=== PATIENT | female | born 1990 | race Caucasian/White ===

== ENCOUNTER 2019-04-06 18:30 | Emergency (ER) | payer OTHER ==
[~2019-04-06] VITALS: Ht 170.2 cm; Wt 54.4 kg
[2019-04-06] MEDS ORDERED: BACTRIM DS TAB1 EACH PO (18:54)
[2019-04-06] MEDS ORDERED: KEFLEX500 M1 PO (18:54)
[2019-04-06 19:08] VITALS: BP 153/94
== END 2019-04-06 19:09 | disposition home or self-care (01) ==
LOC: M.ERS 18:30
DX: L70.0 Acne vulgaris (principal); F17.200 Nicotine dependence, unspecified, uncomplicated; R03.0 Elevated blood-pressure reading, without diagnosis of hypertension

== ENCOUNTER 2019-07-17 05:11 | Emergency (ER) | payer OTHER ==
[~2019-07-17] VITALS: Ht 172.7 cm; Wt 54.4 kg
[~2019-07-17 05:11] MED LIST: BACTRIM DS TAB1 EACH PO; KEFLEX500 M1 PO
[2019-07-17] MEDS ORDERED: PROAIR HFA8.5 GM INH (05:16)
[2019-07-17 05:58] LABS: ABSOLUTE EOSINOPHILS 0.1 thou/uL (0.0-0.7); ABSOLUTE LYMPHOCYTES 1.5 thou/uL (0.8-5.3); ABSOLUTE MONOCYTES 0.7 thou/uL (0.0-1.2); BASOPHILS 0.4 %; EOSINOPHILS 0.5 %; HEMATOCRIT 39.1 % (37.0-47.0); HEMOGLOBIN 12.9 gm/dL (12.0-15.0); LYMPHOCYTES 14.5 %; MCH 30.1 pg (26.0-34.0); MCV 91.1 fL (80.0-100.0); MONOCYTES 6.4 %; MPV 7.5 fl. (7.2-11.1); NUCLEATED RBCS 0 /100WBC; PLATELET COUNT* 278 thou/uL (150-400); POLYS 78.2 %; RBC 4.29 mil/uL (4.20-5.00); RDW-CV 13.9 % (10.5-14.5); WBC 10.2 thou/uL (4.0-11.0)
[2019-07-17 06:02] LABS: CALCIUM 8.4 mg/dL (8.5-10.1); CREATININE 0.9 mg/dL (0.6-1.3); POTASSIUM 3.5 mmol/L (3.5-5.1)
[2019-07-17 06:03] LABS: URINE BILIRUBIN 1+ (Negative); URINE BLOOD 3+ (Negative); URINE CLARITY CLEAR; URINE COLOR YELLOW; URINE GLUCOSE-RANDOM NEGATIVE (Negative); URINE KETONES 1+ (Negative); URINE LEUKOCYTES-REFLEX NEGATIVE (Negative); URINE NITRITE-REFLEX NEGATIVE (Negative); URINE PROTEIN NEGATIVE (Negative); URINE SPECIFIC GRAVITY 1.025 (1.005-1.030); URINE UROBILINOGEN 0.2 E.U./dl (0.2-1.0)
[2019-07-17 06:04] LABS: ICTOTEST (BILI CONFIRMATORY) Negative (Negative)
[2019-07-17 06:07] LABS: ALBUMIN 3.6 g/dL (3.4-5.0); TOTAL BILIRUBIN 0.2 mg/dL (<0.1-1.0); TOTAL PROTEIN 6.9 g/dL (6.4-8.2)
[2019-07-17 06:32] LABS: BACTERIA-REFLEX >30 Many /HPF (None Seen); CASTS None Seen /LPF (None Seen); CRYSTALS None Seen /LPF (None Seen); SQUAMOUS 0-3 Few /LPF (0-3); URINE RBC 3-10 Few /HPF (0-2)
[2019-07-17] MEDS ORDERED: ZOFRAN ODT4 MG DISSOLVE (08:04)
[2019-07-17] MEDS ORDERED: FLOMAX0.4 MG PO (08:04)
[2019-07-17] MEDS ORDERED: KEFLEX500 M1 PO (08:04)
[2019-07-17] MEDS ORDERED: IBUPROFEN 800800 M1 PO (08:04)
[2019-07-17] MEDS ORDERED: NORCO 5-325 TA1 EAC1 PO (08:04)
[2019-07-17 08:10] VITALS: BP 129/83
== END 2019-07-17 08:10 | disposition home or self-care (01) ==
LOC: M.ERS 05:11
PROVIDERS: Personal Emergency Response Attendant
DX: N20.0 Calculus of kidney (principal)

== ENCOUNTER 2019-07-18 19:36 | Emergency (ER) | payer OTHER ==
[~2019-07-18] VITALS: Ht 172.7 cm; Wt 54.4 kg
[~2019-07-18 19:36] MED LIST changes: +FLOMAX0.4 MG PO; +IBUPROFEN 800800 M1 PO; +NORCO 5-325 TA1 EAC1 PO; +PROAIR HFA8.5 GM INH; +ZOFRAN ODT4 MG DISSOLVE
[2019-07-18 20:02] LABS: ABSOLUTE EOSINOPHILS 0.2 thou/uL (0.0-0.7); ABSOLUTE LYMPHOCYTES 2.9 thou/uL (0.8-5.3); ABSOLUTE MONOCYTES 0.7 thou/uL (0.0-1.2); ABSOLUTE NEUTROPHILS 3.6 thou/uL (1.6-8.1); BASOPHILS 0.7 %; EOSINOPHILS 2.1 %; HEMATOCRIT 33.4 % (37.0-47.0); HEMOGLOBIN 11.2 gm/dL (12.0-15.0); LYMPHOCYTES 39.3 %; MCH 30.5 pg (26.0-34.0); MCHC 33.6 g/dL (28.0-37.0); MCV 90.6 fL (80.0-100.0); MONOCYTES 9.7 %; MPV 7.8 fl. (7.2-11.1); NUCLEATED RBCS 0 /100WBC; PLATELET COUNT* 245 thou/uL (150-400); POLYS 48.2 %; RBC 3.68 mil/uL (4.20-5.00); RDW-CV 14.2 % (10.5-14.5); WBC 7.4 thou/uL (4.0-11.0)
[2019-07-18 20:08] LABS: CALCIUM 8.7 mg/dL (8.5-10.1); CREATININE 0.8 mg/dL (0.6-1.3); POTASSIUM 3.6 mmol/L (3.5-5.1)
[2019-07-18 21:18] LABS: URINE BILIRUBIN NEGATIVE (Negative); URINE BLOOD 1+ (Negative); URINE CLARITY CLEAR; URINE COLOR YELLOW; URINE GLUCOSE-RANDOM NEGATIVE (Negative); URINE KETONES NEGATIVE (Negative); URINE LEUKOCYTES-REFLEX NEGATIVE (Negative); URINE NITRITE-REFLEX NEGATIVE (Negative); URINE PROTEIN NEGATIVE (Negative); URINE SPECIFIC GRAVITY >= 1.030 (1.005-1.030); URINE UROBILINOGEN 0.2 E.U./dl (0.2-1.0)
[2019-07-18 21:26] LABS: BACTERIA-REFLEX 1-9 Few /HPF (None Seen); MUCUS 0-3 Light strn/LPF (None Seen); SQUAMOUS >10 Many /LPF (0-3); URINE RBC 3-10 Few /HPF (0-2)
[2019-07-18 21:27] LABS: CASTS None Seen /LPF (None Seen); CRYSTALS None Seen /LPF (None Seen); URINE WBC-REFLEX 0-5 Rare /HPF (0-5)
[2019-07-18 21:30] LABS: AMP/METHAMP POSITIVE (Negative); BARBITURATES Negative (Negative); BENZODIAZEPINES Negative (Negative); COCAINE Negative (Negative); METHADONE Negative (Negative); OPIATES Negative (Negative); PCP Negative (Negative); THC POSITIVE (Negative)
[2019-07-18 22:14] VITALS: BP 130/85
== END 2019-07-18 22:15 | disposition home or self-care (01) ==
LOC: M.ERS 19:36
PROVIDERS: Emergency Medicine
DX: N23 Unspecified renal colic (principal); F15.10 Other stimulant abuse, uncomplicated; F17.210 Nicotine dependence, cigarettes, uncomplicated

== ENCOUNTER 2020-05-28 05:42 | Emergency (ER) | payer OTHER ==
[~2020-05-28] VITALS: Ht 172.7 cm; Wt 54.4 kg
[2020-05-28] MEDS ORDERED: IBUPROFEN 600600 M1 PO (06:16)
[2020-05-28] MEDS ORDERED: ACETAMINOPHEN-1 EAC2 PO (06:16)
[2020-05-28] MEDS ORDERED: BACTRIM DS TAB1 EACH PO (06:16)
[2020-05-28 06:40] VITALS: BP 141/81
== END 2020-05-28 06:40 | disposition home or self-care (01) ==
LOC: M.ERS 05:42
DX: N76.4 Abscess of vulva (principal); F17.210 Nicotine dependence, cigarettes, uncomplicated

== ENCOUNTER 2021-02-01 23:22 | Emergency (ER) | payer OTHER ==
[~2021-02-01] VITALS: Ht 172.7 cm; Wt 56.7 kg
[~2021-02-01 23:22] MED LIST changes: +ACETAMINOPHEN-1 EAC2 PO; +IBUPROFEN 600600 M1 PO
[2021-02-01] MEDS ORDERED: BACTRIM DS TAB1 EACH PO (23:41)
[2021-02-01] MEDS ORDERED: ERYTHROMYCIN E3.5 G3 OPHTHALMIC (23:41)
[2021-02-01 23:55] VITALS: BP 140/84
== END 2021-02-01 23:55 | disposition home or self-care (01) ==
LOC: M.ERS 23:22
DX: H04.011 Acute dacryoadenitis, right lacrimal gland (principal); F17.210 Nicotine dependence, cigarettes, uncomplicated

== ENCOUNTER 2021-10-15 15:48 | Emergency (ER) | payer OTHER ==
[~2021-10-15] VITALS: Ht 172.7 cm; Wt 52.2 kg
[~2021-10-15 15:48] MED LIST changes: +ERYTHROMYCIN E3.5 G3 OPHTHALMIC
[2021-10-15] MEDS ORDERED: BACTRIM DS TAB1 EACH PO (16:52)
[2021-10-15] MEDS ORDERED: HYDROCODON-ACE1 EAC7 PO (16:52)
[2021-10-15 17:29] VITALS: BP 133/89
== END 2021-10-15 17:30 ==
LOC: M.ERS 15:48
DX: L02.31 Cutaneous abscess of buttock (principal); F17.210 Nicotine dependence, cigarettes, uncomplicated; Z98.51 Tubal ligation status; Z79.899 Other long term (current) drug therapy